=== PATIENT | male | born 1935 | race Caucasian/White ===

== ENCOUNTER 2017-09-03 08:35 | Observation (INO) | payer MEDICARE, SELFPAY ==
[2017-09-03] VITALS (9 sets, daily range): BP systolic 119–139; BP diastolic 60–85; PULSE 60–78; RESP 11–20; TEMP 36.2–36.8; O2SAT 96–98; BMI 23.8; BMI 23.9
--- NOTE | 2017-09-03 08:46 | CT_ITS ---
STUDY: CT BRAIN WITHOUT CONTRAST REASON FOR EXAM: Male, 82 years old. Dizziness RADIATION DOSAGE (If Supplied By Facility): CTDIvol = ( 44.99 ) mGy, DLP = ( 745.49 ) mGycm TECHNIQUE: Transaxial CT imaging of the brain was performed without administration of intravenous contrast material. Individualized dose optimization techniques were used for this CT. COMPARISON: None. FINDINGS: The soft tissues are unremarkable. The osseous structures are unremarkable. Normal size ventricles and extra-axial spaces for the patient's age. There are scattered small areas of decreased attenuation within the white matter tracts of the supratentorial brain, likely microvascular changes. 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 No abnormalities are seen in the brainstem. The cerebellum is unremarkable. There is no intracranial hemorrhage. There are no findings of acute ischemia. There is minimal mucosal thickening in the right maxillary sinus and both frontal sinuses. CT/Brain/Head without Contrast IMPRESSION: No acute intracranial abnormalities. Electronically Signed: Shellie Travis MD at 9:27 EST Tel Direct: [phone], Service support ,
--- NOTE | 2017-09-03 08:46 | RAD_ITS ---
STUDY: X-RAY CHEST REASON FOR EXAM: Male, 82 years old. Dizziness TECHNIQUE: A single frontal view of the chest was obtained. COMPARISON: None. FINDINGS: The lungs are underaerated. There are minimal increased markings in the lung bases. There are no focal airspace opacities. There is no demonstrated pleural abnormality. The cardiac silhouette is normal in size allowing for low volume inspiration. The mediastinum and hilar regions are unremarkable. Normal visualized pulmonary arteries. There is atherosclerotic calcification of the thoracic aorta. There are diffuse degenerative changes of the visualized spine. There are degenerative changes in both shoulders. There is no demonstrated abnormality of the visualized upper abdomen. RAD/Chest 1 View (Portable) IMPRESSION: No acute cardiopulmonary abnormalities. There is minimal bibasilar atelectasis due to low volume inspiration. Electronically Signed: Shellie Travis MD at 9:20 EST Tel Direct: [phone], Service support ,
[2017-09-03] MEDS: Ondansetron 4 MG/2 ML Vial IV (08:52)
[2017-09-03 08:58] LABS: Absolute Lymphocyte Count 3.02 X10^3/ul (0.83-4.51); Absolute Neutrophil Count 3.8 X10^3/uL (2.0-7.7); Basophil# 0.02 X10^3/uL; Basophil% 0.3 % (0-1); Eosinophils% 1.3 % (0-5); Hematocrit 45.3 % (40-54); Hemoglobin 15.7 g/dl (13.0-16.5); Lymphocyte # 3.02 X10^3/ul (4.0); Lymphocyte % 40.1 % (19-41); Mean Corp Hgb Conc 34.7 g/gl (32-36); Mean Corpuscular Hgb 30.7 pg (27.0-32.0); Mean Corpuscular Volume 88.5 fL (80-94); Mean Platelet Vol. 10.5 fl (6.2-12.0); Monocyte# 0.57 X10^3/uL; Monocyte% 7.6 % (0-10); Neutrophil # 3.81 X10^3/uL (2.7-7.7); Neutrophil % 50.6 % (47-70); POSITIVE COUNT NO; POSITIVE DIFFERENTIAL NO; POSITIVE MORPHOLOGY NO; Platelet Count 189 K/mm3 (150-450); RBC Distribution Width CV 12.8 % (11.6-14.6); RBC Distribution Width SD 41.5 fl (35.1-43.9); Red Blood Count 5.12 M/mm3 (4.6-6.2); White Blood Count 7.5 K/mm3 (4.4-11.0)
[2017-09-03 09:14] LABS: AST(SGOT) 46 U/L (15-37); Alanine Aminotransfer ALT/SGPT 63 U/L (12-78); Albumin, Serum 3.5 g/dL (3.4-5.0); Alkaline Phosphatase 77 U/L (45-117); Anion Gap 12 (5-15); BUN 11 mg/dL (7-18); BUN/Creat Ratio 8.7 RATIO (10-20); Bilirubin, Direct 0.22 mg/dL (0.00-0.30); Calcium,Total 8.8 mg/dL (8.5-10.1); Chloride 104 mmol/L (98-107); Creatinine, Serum 1.27 mg/dL (0.70-1.30); EST Glomerular Filtration Rate 58 mL/min (>60); Est Glom Filt Rate - Afr Amer 70 mL/min (>60); Estimated Creatinine Clearance 41.86 ml/min; Globulin 4.2 g/dL (2.2-4.2); Glucose 183 mg/dL (70-110); Lipase 130 U/L (73-393); Potassium 4.3 mmol/L (3.5-5.1); Protein, Total 7.7 g/dL (6.4-8.2); Sodium Level 141 mmol/L (136-145)
--- NOTE | 2017-09-03 09:41 | ED.VISSUMM ---
- ER Visit Summary Date of Service: 09/03/17 Chief Complaint: [] Dizzy spinning sensation started 11 PM yesterday History of Present Illness: The patient is a 82 M [] denies any past history reports yesterday 11 PM he began feeling a sense that everything was spinning, no headache #6 paresthesias no change in vision no chest pain abdominal pain review of systems to all areas were entirely negative. His symptoms persisted today he developed some dry heaves and he came in for evaluation Physical Examination: [] Is a lazy left eye that at baseline points to this 5 o'clock position that is not new or different his vision both eyes are normal for him his head is unremarkable neck is supple lungs are clear heart tones are normal abdomen soft nontender upper lower extremities unremarkable his cranial nerve exam is unremarkable I cannot reproduce his dizziness with extraocular muscle movement when he turns his head left or right he subjectively feels more dizzy but there is no nystagmus he has no obvious cerebellar abnormalities nose normal strength and normal sensation speech and cranial nerves are intact, NIH is 0 Test Results: [] Emergency Department Course and Treatment: [] Labs CT head These are generally unremarkable. The patient continues to complain of being dizzy we walked him he seemed to walk with good stability but the family complained that they did not feel he was comfortable or safe for discharge home because he was still dizzy his neurologic exam is unchanged again is complaining of a spinning sensation his NIH remains 0 given all the above we talked the hospitalist will arrange for admission Treatment Plan: [] Disposition: [] Admit stable Impression: [] Intractable dizziness with vertigo This note was generated with [employer] dictation software. It may contain incorrect words, spelling, and punctuation that were not noted in review of the chart prior to signing ED Disposition - Plan for ED Patient: Chief Complaint: Dizziness Referrals: Clayton Márquez MD [Primary Care Provider] -
--- NOTE | 2017-09-03 10:13 | EKG12_ITS ---
Test Reason : DIZZINESS Blood Pressure : / mmHG Vent. Rate : 061 BPM Atrial Rate : 061 BPM P-R Int : 164 ms QRS Dur : 078 ms QT Int : 422 ms P-R-T Axes : 049 020 024 degrees QTc Int : 424 ms Normal sinus rhythm Normal ECG Confirmed by JEANINE MENDOZA, DERIC ([id number]), editor trade journal CRISTAL LANGSTON ([id number]) on 09/05/2017 10:40:49 AM Referred By: JUNE Confirmed By:DERIC SOLORZANO MD
[2017-09-03] MEDS: Meclizine 12.5 MG Tablet 25 MG PO (10:24)
[2017-09-03] MEDS: LORazepam 2 MG/ML Syringe 0.5 MG IV (10:24)
[2017-09-03 12:47] LABS: Bacteria 0 SEEN /hpf (None Seen); Mucous, Urine 0 SEEN /hpf (<or=2+); Red Blood Cells-Urine 0 SEEN /hpf (0-5); Squamous Epithelial Cells - UA 0 SEEN /hpf (0-5)
[2017-09-03 12:49] LABS: Color, Urine Yellow (Yellow); Glucose, Dipstick Normal (Normal); Ketone-Dipstick Negative (Negative); Leukocyte Esterase-Dipstick 25 /ul (Negative); Nitrite-Dipstick Negative (Negative); Occult Blood-Urine Negative /ul (Negative); Protein-Dipstick Negative (Negative); Urine Bilirubin Dipstick Negative (Negative); Urine Clarity Clear (Clear); Urine Urobilinogen Normal (Normal)
[2017-09-03 12:59] LABS: White Blood Cells 0-5 SEEN /hpf (0-5)
--- NOTE | 2017-09-03 14:05 | HP.PCM_ITS ---
Problem List (1) Positional vertigo Status: Acute History of Present Illness Date of Admission: 09/03/17 Chief Complaint: dizziness The patient is a 82 year old M who presented to the ER with a chief complaint of dizziness. This began last night as he was climbing into bed. He went from standing to the bed and became suddenly dizzy with a sensation of the room spinning. He does not have a hx of vertigo or stroke. He then woke up this morning with no vertigo, but after he sat up in bed the sensation returned. He tried to get up and walk and was falling into the rose as his balance was very poor. He did not fall to the ground or lose consciousness. He came to the ER and was given ativan and meclizine which did improve his symptoms although he still has some residual dizziness lying in bed. He states if he turns his head sharply to either direction he can trigger the dizziness. He denies double vision, headache, focal weakness, slurred speech, foot drag, CP, palp, or SOB. He has no medical hx, he takes fish oil and vitamin D. He has left amblyopia that is unchanged since an age 14 injury. [] Past Medical History Allergies No Known Allergies Allergy (Verified 09/03/17 08:41) Home Medications: Ambulatory Orders Medication Instructions Recorded NK [NK] 07/19/17 Surgical History: - - neck lumps removed - non cancerous Psychiatric History: No pertinent psych hx Lives: Spouse/ Significant Other Smoking Status: Never smoker Tobacco Use: Non-smoker Alcohol: None Drugs: None - *Family History Paternal History Items: Diabetes Sibling History Items: Diabetes, Heart Disease Review of Systems Constitutional: Denies: Chills, Fever, Malaise, Weakness, Weight Change, Fatigue Eyes: Denies: Blurred vision, Double vision, Vision Change HEENT: Denies: Difficulty Hearing, Difficulty Swallowing, Hard of Hearing, Head Aches, Hearing Changes, Sinus Congestion, Sinus Drainage, Visual Changes Cardiovascular: Denies: Chest Pain, Palpitations Respiratory: Denies: Cough, Shortness of breath at rest, Sputum production Gastrointestinal: Denies: Abdominal Pain, Nausea, Vomiting Genitourinary: Denies: Dysuria Musculoskeletal: Denies: Joint Pain, Joint Tenderness Skin: Denies: Rash, Wounds Neurological: Reports: Balance problems, Incoordination, - - left amblyopia chronic since age 14 trauma, - - vertigo. Denies: Blurred vision, Double vision , Change in Speech, Slurred speech, Confusion, Focal weakness, Headaches, Numbness, Tingling Psychiatric: Denies: Anxiety, Depression, Homicidal Ideations, Suicidal Ideations Hematologic/ Lymphatic: Denies: Easy Bruising, Easy Bleeding VTE Information - Inpt Only VTE Present on Admission: No VTE Mechan Device Prophylaxis: SCD's VTE Pharm Prophylaxis ordered?: No Reason prophylaxis not ordered:: Procedure Not Indicated Patient Problems: Active and Suspected Problems Positional vertigo (Acute) - Physical Exam General: Alert, Oriented x3, Cooperative HEENT: Atraumatic, PERRLA, EOMI, Normocephalic, - - + fine nystagmus left and right. Negative lorenzo hallpike maneuver. left amblyopia. does track well. Neck: Supple, No JVD, Negative Carotid Bruits Lungs: Clear to auscultation, Normal air movement Cardiovascular: Regular rate, No murmurs Abdomen: Bowel Sounds Present, Soft, Non Tender Extremities: No edema, Capillary Refill Less than 3 Seconds Skin: No rashes, No breakdown Musculoskeletal: No Tenderness to Palpation of Joints or Extremities Neurological: Cranial nerves II-XII grossly intact Psych/Mental Status: Normal Affect, Appropriate, Alert and oriented to time, place, person, mood and affect Vital Signs Temp Pulse Resp BP Pulse Ox 97.2 F L 68 17 135/78 H 96 09/03/17 08:35 09/03/17 13:41 09/03/17 13:41 09/03/17 13:41 09/03/17 12:54 Oxygen Delivery Method Room Air Weight: 67.132 kg Body Mass Index (BMI) 23.8 Laboratory Tests Past 24 Hrs 09/03/17 09/03/17 09/03/17 08:50 08:50 12:40 WBC 7.5 RBC 5.12 Hgb 15.7 Hct 45.3 MCV 88.5 MCH 30.7 MCHC 34.7 RDW 12.8 RDW Differential 41.5 Plt Count 189 MPV 10.5 Immature Gran % (Auto) 0.100 Neut % (Auto) 50.6 Lymph % (Auto) 40.1 Miller % (Auto) 7.6 Eos % (Auto) 1.3 Baso % (Auto) 0.3 Absolute Neuts (auto) 3.8 Absolute Lymphs (auto) 3.02 Total Counted Not Reportable Sodium 141 Potassium 4.3 Chloride 104 Carbon Dioxide 25.0 Anion Gap 12 BUN 11 Creatinine 1.27 Estim Creat Clear Calc 41.86 Est GFR (MDRD) Af Amer 70 Est GFR (MDRD) Non-Af 58 L BUN/Creatinine Ratio 8.7 L Glucose 183 H Calcium 8.8 Total Bilirubin 1.00 Direct Bilirubin 0.22 AST 46 H ALT 63 Alkaline Phosphatase 77 Troponin I < 0.02 Total Protein 7.7 Albumin 3.5 Globulin 4.2 Lipase 130 Urine Color Yellow Urine Clarity Clear Urine pH 7.0 Ur Specific [place] 1.010 Urine Protein Negative Urine Glucose (UA) Normal Urine Ketones Negative Urine Occult Blood Negative Urine Nitrite Negative Urine Bilirubin Negative Urine Urobilinogen Normal Ur Leukocyte Esterase 25 H Urine RBC 0 SEEN Urine WBC 0-5 SEEN Ur Squamous Epith Cells 0 SEEN Urine Bacteria 0 SEEN Urine Mucus 0 SEEN Assessment/Plan Active and Suspected Problems Positional vertigo (Acute) 1. BPPV - new onset of symptoms last night, vertigo severe enough to be causing ataxic gait. CT brain negative. Symptoms improved with Meclizine and valium. Will continue. Obtain MRI/MRA of the brain to rule out other underlying process. Labs and vitals unremarkable. Pt can self stimulate the symptoms with sudden turns left or right and has some nystagmus on exam. I was unable to elicit or worsen the symptoms on exam. He denies other symptoms concerning for a stroke such as slurred speech, double vision, focal weakness, facial droop, headache, or numbness or tingling 2. Left Amblyopia - chronic 3. Hyperglycemia - check A1C - no prior dx. + family hx - mulitple family members with DM. SSI. DVT ppx: SCDs DC planning: PTOT. Will likely need vestibular therapy as o/p. Pt seen by Franki Oconnor PA-C under the supervision of Dr. Garibay
[2017-09-03] MEDS: diazePAM 2 MG Tablet PO ×3 (16:02→21:54)
[2017-09-03 16:10] LABS: Bedside Glucose 174 mg/dL (70-110)
[2017-09-03 16:28] LABS: Hemoglobin A1c 6.4 % (4.2-6.3)
[2017-09-04 00:33] VITALS: PULSE 80
[2017-09-04 02:44] VITALS: BP 136/64; PULSE 67; RESP 16; TEMP 37; O2SAT 93
[2017-09-04 04:19] VITALS: PULSE 63
--- NOTE | 2017-09-04 07:29 | MRI_ITS ---
STUDY: MRI BRAIN WITHOUT CONTRAST REASON FOR EXAM: Male, 82 years old. Vertigo. TECHNIQUE: Standardized multiplanar fat and water weighted pulse sequences were obtained. COMPARISON: CT of the head dated September 03, 2017. FINDINGS: There is mild cerebral atrophy with widening of the extra-axial spaces and ventricular dilatation. There are a limited number of small white matter hyperintensities, distributed throughout the deep white matter tracts of the cerebral hemispheres, consistent with mild chronic white matter ischemic changes. There is no evidence for recent intracranial ischemia or other cause of cytotoxic edema on diffusion weighted imaging (DWI). Normal T2* images of the brain without demonstrated susceptibility artifact. There is no demonstrated hemosiderin stain. There is a large area of apparent encephalomalacia in the left basal ganglia. This may represent sequela of old infarct. There are prominent Virchow-Herrera spaces in the basal ganglia. Normal thalami. There is no extra-axial fluid accumulation. Normal flow voids within the major intracranial circulation suggesting patency by spin echo criteria. Normal sella turcica, pituitary gland, infundibular stalk, optic chiasm and hypothalamus. Normal tectal plate and pineal gland. Normal midbrain, long and medulla. Normal cerebellum. Normal basal cisterns. Normal bilateral temporal bones. Normal bilateral internal auditory canals. No demonstrated orbital abnormality, within the constraints of a routine brain study. There is mucoperiosteal inflammatory disease of the paranasal sinuses consistent with mild chronic sinusitis. Normal calvarium and skull base. Normal visualized soft tissue structures. There are mild degenerative changes of the imaged cervical spine. MRI/Brain without Contrast IMPRESSION: 1. Involutional changes of the brain, as described above. 2. No MR evidence for acute infarct. Electronically Signed: Vonda Treviño MD at 10:49 EST , Service support ,
--- NOTE | 2017-09-04 07:29 | MRI_ITS ---
STUDY: MRA OF THE HEAD WITHOUT CONTRAST REASON FOR EXAM: Male, 82 years old. Vertigo. TECHNIQUE: 3-D umdt-rh-gacwjq (TOF) imaging was performed with MIPs. The study was performed unenhanced. Several images are limited by patient motion. COMPARISON: MRI of the brain dated September 04, 2017. FINDINGS: Normal bilateral petrous carotid arteries. Normal right cavernous carotid artery with a normal supraclinoid bifurcation. Normal left cavernous carotid artery with a normal supraclinoid bifurcation. Normal right A1 segments of the anterior cerebral artery. Normal left A1 segments of the anterior cerebral artery. There is non-visualization of the anterior communicating artery (ACOM). Normal bilateral A2 segments of the anterior cerebral arteries. There is irregularity of the right M1 and M2 branches with minimal luminal narrowing, suggesting atherosclerotic plaque formation, without an occlusion. There is irregularity of the left M1 and M2 branches with minimal luminal narrowing, suggesting atherosclerotic plaque formation, without an occlusion. There is non-visualization of the right posterior communicating artery (PCOM). There is non-visualization of the left posterior communicating artery (PCOM). Normal bilateral vertebral arteries. Normal basilar artery with a normal basilar bifurcation. The visualized bilateral superior cerebellar (SCA) arteries are normal. Normal bilateral P1, P2 and visualized P3 segments of the posterior cerebral arteries. There is no demonstrated aneurysm of the [place]. There is no major vessel occlusion or hemodynamically significant stenosis. There are mild involutional changes of the brain. MRI/MRA Head ONLY without Contrast IMPRESSION: 1. Technically limited MRA due to patient motion. 2. No MRA evidence for hemodynamically significant stenosis. Electronically Signed: Vonda Treviño MD at 10:54 EST , Service support ,
--- NOTE | 2017-09-04 07:34 | MRI_ITS ---
STUDY: MRA NECK WITH AND WITHOUT CONTRAST REASON FOR EXAM: Male, 82 years old. Vertigo. TECHNIQUE: 3-D nwnr-mx-umkzeg (TOF) imaging was performed in an 1.5 T MRI scanner. 7 ml of Gadavist was administered for the contrast enhanced images. COMPARISON: None. FINDINGS: RIGHT CAROTID ARTERIES: Normal right common carotid artery (CCA). There is mild atherosclerotic plaque formation with minimal narrowing of the right carotid bulb. There is mild atherosclerotic plaque formation of the origin of the right internal carotid artery with less than 50% cross sectional diameter stenosis. Normal visualized cervical portion of the right internal carotid artery. Normal origin of the right external carotid artery (ECA). LEFT CAROTID ARTERIES: Normal left common carotid artery (CCA). There is mild atherosclerotic plaque formation with minimal narrowing of the left carotid bulb. There is mild atherosclerotic plaque formation of the origin of the left internal carotid artery with less than 50% cross sectional diameter stenosis. Normal visualized cervical portion of the left internal carotid artery. Normal origin of the left external carotid artery (ECA). VERTEBRAL ARTERIES: Normal antegrade flow within the bilateral vertebral artery without a hemodynamically significant stenosis. 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 Electronically Signed: Vonda Treviño MD at 10:34 EST , Service support ,
[2017-09-04 07:58] VITALS: PULSE 73
--- NOTE | 2017-09-04 08:34 | PCM.PN.HOSP ---
Patient Problems: Active and Suspected Problems Positional vertigo (Acute) Subjective: Patient with no acute events overnight per self and per nursing report. Patient notes improvement with vertigo with no further marked room spinning sensation. Morning following MRIs which are pending he is upright in bed talking with his family, moving his neck side to side, eating in no acute distress. States he has been up to the restroom did not have any difficulty at that time but repeat assessment following food intake is pending. Patient denies fevers, chills, nausea, emesis, abdominal pain, chest pain or dyspnea. Objective: Physical Examination: General: awake, alert, oriented x 3 and cooperative, seated upright in bed in no apparent distress. Skin: normal color, turgor, no icterus, cyanosis. HEENT: AT/NC, EOMI, PERRLA, MMM, chronic left amblyopia. Lungs: CTA bilaterally, moderate effort, mild decrease BL bases, no rales, ronchi or wheezing. Heart: Regular rate and rhythm; no gallop, rub audible. Abdomen: soft, NTTP, ND, normal BS. Extremities: no cyanosis, clubbing, or edema. Neurological: patient awake, alert, oriented x 3; cognitive function intact; pupils equally reactive to light and accomodation; cranial nerves II-XII grossly normal, moving all 4 extremities, no focal deficits, strength improved, no vertigo sensation currently and none with quick head movement. Psychiatric: affect appears normal, no acute evidence of depressive or anxiety feelings. Vitals/I&O's: Vital Signs Temp Pulse Resp BP Pulse Ox 98.6 F 63 16 136/64 H 93 09/04/17 02:44 09/04/17 04:19 09/04/17 02:44 09/04/17 02:44 09/04/17 02:44 Oxygen Delivery Method Room Air Weight: 147 lb 14.883 oz Body Mass Index (BMI) 23.8 Intake and Output for Last 24 Hours 09/02/17 09/03/17 09/04/17 23:59 23:59 23:59 Intake Total 300 / 300 325 / 325 Output Total 0 / 0 Balance 300 / 300 325 / 325 Laboratory Results 09/03/17 16:01: POC Glucose 174 H Current Medications Acetaminophen (Tylenol) 650 mg PO Q6H PRN PRN PRN Reason: Mild Pain (1-3)/Temp > 100.7 F Diazepam (Valium) 2 mg PO 4X/DAY [facility] Last Admin: 09/03/17 21:54 Dose: 2 mg Heparin Sodium (Porcine) (Heparin Na) 5,000 unit SC Q8 [facility] Last Admin: 09/04/17 05:27 Dose: 5,000 units Ondansetron HCl (Zofran) 4 mg IV Q8H PRN PRN PRN Reason: NAUSEA Sodium Chloride () 5 - 30 ml IV UD PRN PRN Reason: SALINE FLUSH Assessment/Plan Active and Suspected Problems Positional vertigo (Acute) The patient is an 82 y/o M w/ PMHx no marked PMHx but no regular medical evaluation who presents to the [facility] ED on 09/03/17 w/ onset of dizziness described as room spinning with difficulty ambulating with noted onset w/ quick turn of his head. (1) Suspected Vertigo secondary to BPPV: CT head without acute findings. Maintained on MS, given severity of presentation, continued on valium regimen w/ planned oral meclizine upon discharge, pending MRI Brain, MRA Head and Neck and if unremarkable would plan discharge to home pending therapy assessment, if needed will set-up vestibular therapy outpatient. Maintain on asa, BP normal range, not on statin, will obtain FLP if notable findings on MRI, fall precautions. (2) Hyperglycemia secondary to Pre-Diabetes mellitus type II: Admission glucose 183, HgBA1c 6.4%, nutrition consulted for education, will need repeat HgBA1c with PCP and if > or = 6.5% at recheck consider addition metformin. (3) Chronic Left Eye Amblyopia: Unclear specific type, chronic, following as needed outpatient. (4) DVT Prophylaxis: SCDs, lovenox. Code Visit OBSV E&M: 49029 Subsequent observation care L2
[2017-09-04] MEDS: diazePAM 2 MG Tablet PO (08:44)
--- NOTE | 2017-09-04 08:45 | PN_ITS ---
Patient Problems: Active and Suspected Problems Positional vertigo (Acute) Subjective: Patient with no acute events overnight per self and per nursing report. Patient notes improvement with vertigo with no further marked room spinning sensation. Morning following MRIs which are pending he is upright in bed talking with his family, moving his neck side to side, eating in no acute distress. States he has been up to the restroom did not have any difficulty at that time but repeat assessment following food intake is pending. Patient denies fevers, chills, nausea, emesis, abdominal pain, chest pain or dyspnea. Objective: Physical Examination: General: awake, alert, oriented x 3 and cooperative, seated upright in bed in no apparent distress. Skin: normal color, turgor, no icterus, cyanosis. HEENT: AT/NC, EOMI, PERRLA, MMM, chronic left amblyopia. Lungs: CTA bilaterally, moderate effort, mild decrease BL bases, no rales, ronchi or wheezing. Heart: Regular rate and rhythm; no gallop, rub audible. Abdomen: soft, NTTP, ND, normal BS. Extremities: no cyanosis, clubbing, or edema. Neurological: patient awake, alert, oriented x 3; cognitive function intact; pupils equally reactive to light and accomodation; cranial nerves II-XII grossly normal, moving all 4 extremities, no focal deficits, strength improved, no vertigo sensation currently and none with quick head movement. Psychiatric: affect appears normal, no acute evidence of depressive or anxiety feelings. Vitals/I&O's: Vital Signs Temp Pulse Resp BP Pulse Ox 98.6 F 63 16 136/64 H 93 09/04/17 02:44 09/04/17 04:19 09/04/17 02:44 09/04/17 02:44 09/04/17 02:44 Oxygen Delivery Method Room Air Weight: 147 lb 14.883 oz Body Mass Index (BMI) 23.8 Intake and Output for Last 24 Hours 09/02/17 09/03/17 09/04/17 23:59 23:59 23:59 Intake Total 300 / 300 325 / 325 Output Total 0 / 0 Balance 300 / 300 325 / 325 Laboratory Results 09/03/17 16:01: POC Glucose 174 H Current Medications Acetaminophen (Tylenol) 650 mg PO Q6H PRN PRN PRN Reason: Mild Pain (1-3)/Temp > 100.7 F Diazepam (Valium) 2 mg PO 4X/DAY [facility] Last Admin: 09/03/17 21:54 Dose: 2 mg Heparin Sodium (Porcine) (Heparin Na) 5,000 unit SC Q8 [facility] Last Admin: 09/04/17 05:27 Dose: 5,000 units Ondansetron HCl (Zofran) 4 mg IV Q8H PRN PRN PRN Reason: NAUSEA Sodium Chloride () 5 - 30 ml IV UD PRN PRN Reason: SALINE FLUSH Assessment/Plan Active and Suspected Problems Positional vertigo (Acute) The patient is an 82 y/o M w/ PMHx no marked PMHx but no regular medical evaluation who presents to the [facility] ED on 09/03/17 w/ onset of dizziness described as room spinning with difficulty ambulating with noted onset w/ quick turn of his head. (1) Suspected Vertigo secondary to BPPV: CT head without acute findings. Maintained on MS, given severity of presentation, continued on valium regimen w / planned oral meclizine upon discharge, pending MRI Brain, MRA Head and Neck and if unremarkable would plan discharge to home pending therapy assessment, if needed will set-up vestibular therapy outpatient. Maintain on asa, BP normal range, not on statin, will obtain FLP if notable findings on MRI, fall precautions. (2) Hyperglycemia secondary to Pre-Diabetes mellitus type II: Admission glucose 183, HgBA1c 6.4%, nutrition consulted for education, will need repeat HgBA1c with PCP and if > or = 6.5% at recheck consider addition metformin. (3) Chronic Left Eye Amblyopia: Unclear specific type, chronic, following as needed outpatient. (4) DVT Prophylaxis: SCDs, lovenox. Code Visit OBSV E&M: 36494 Subsequent observation care L2
[2017-09-04 08:46] VITALS: BP 152/81; PULSE 80; RESP 18; TEMP 36.6; O2SAT 98
--- NOTE | 2017-09-04 08:56 | NURSING ---
Addendum entered by Erna Montana 09/04/17 10:11: pt returned at this time- Dr. Rodriguez at this time. Original Note: patient off unit at this time-per radiology transport
--- NOTE | 2017-09-04 10:22 | NURSING ---
This RN called MRI and spoke with Marimar. Notified that Dr. Rodriguez requests results of MRI and MRA- head and neck to be STAT. Understanding verbalized- states she will adjust orders.
--- NOTE | 2017-09-04 10:26 | PCM.DC ---
- Discharge Diagnoses Current Active Problems: Current Active and Chronic Problems Positional vertigo (Acute) You will use the following diet at home:: No restrictions Your food should be the consistency of: Regular Your liquids should be the consistency of: Regular/Thin Discharge Activity: - - Avoid driving until vertigo completely resolved and not requiring meclizine. May resume sexual activity in: No Restrictions Weight Bearing Status: Weight bearing as tolerated Call your doctor if you observe: Fever of 101 or Higher, Inability to urinate, Inability to have a bowel movement, Shortness of breath, Dizziness, Fainting spells, Chest pain, Uncontrolled pain, - - Recurrent or worsened vertigo. Instructions: Understanding Dizziness, Balance Problems, and Fainting, Possible Causes of Dizziness or Fainting, Managing Dizziness (Vertigo) with Medications Allergies/Adverse Reactions: Allergies No Known Allergies Allergy (Verified 09/03/17 15:08) Medications to take at Discharge Aspirin [Aspirin, Baby] 81 mg PO DAILY@0800 #30 tab.chew 09/04/17 Meclizine HCl [Antivert] 25 mg PO TID PRN PRN #30 tab 09/04/17 Ondansetron HCl [Zofran] 8 mg PO Q8H PRN PRN #20 tab 09/04/17 The following prescriptions were given: Ondansetron HCl [Zofran] 8 mg PO Q8H PRN PRN #20 tab PRN Reason: nausea, emesis Aspirin [Aspirin, Baby] 81 mg PO DAILY@0800 #30 tab.chew Meclizine HCl [Antivert] 25 mg PO TID PRN PRN #30 tab PRN Reason: Vertigo (spinning sensation) Primary Care Physician: Clayton Márquez MD [Primary Care Provider] - Please follow up with your Primary Care Physician in: Follow-up within 3-5 days to review admission. Proposed Discharge Date: 09/04/17
--- NOTE | 2017-09-04 11:05 | PCM.DC.SUM ---
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 Operations: None Procedures: EKG Summary of Care Provided: The patient is an 82 y/o M w/ PMHx no marked PMHx but no regular medical evaluation who presents to the [facility] ED on 09/03/17 w/ onset of dizziness described as room spinning with difficulty ambulating with noted onset w/ quick turn of his head. Suspected Vertigo secondary to BPPV w/ CT head without acute findings. Maintained on MS, given severity of presentation, continued on valium regimen w/ oral meclizine upon discharge, unremarkable MRI Brain, MRA Head and Neck, vestibular therapy outpatient as needed. Maintain on asa upon discharge, BP normal range, not on statin w/ recommendation outpatient continued evaluation and follow-up. During the admission, patient w/ noted hyperglycemia secondary to Pre-Diabetes mellitus type II w/ admission glucose 183, HgBA1c 6.4%, nutrition consulted for education, will need repeat HgBA1c with PCP and if > or = 6.5% at recheck consider addition metformin. Given MRIs negative and patient clinically improved, patient discharged to home in stable condition. Discharge Diet: 1800 Calorie Control Diet Discharge Activity: - - Avoid driving until vertigo completely resolved and not requiring meclizine. May resume sexual activity in: No Restrictions Weight Bearing Status: Weight bearing as tolerated Call your doctor if you observe: Fever of 101 or Higher, Inability to urinate, Inability to have a bowel movement, Shortness of breath, Dizziness, Fainting spells, Chest pain, Uncontrolled pain, - - Recurrent or worsened vertigo. Home Medications: Medications to take at Discharge Aspirin [Aspirin, Baby] 81 mg PO DAILY@0800 #30 tab.chew 09/04/17 Meclizine HCl [Antivert] 25 mg PO TID PRN PRN #30 tab 09/04/17 Ondansetron HCl [Zofran] 8 mg PO Q8H PRN PRN #20 tab 09/04/17 Following Prescrptions Were Given to Patient: Ondansetron HCl [Zofran] 8 mg PO Q8H PRN PRN #20 tab PRN Reason: nausea, emesis Aspirin [Aspirin, Baby] 81 mg PO DAILY@0800 #30 tab.chew Meclizine HCl [Antivert] 25 mg PO TID PRN PRN #30 tab PRN Reason: Vertigo (spinning sensation) Primary Care Physician: Clayton Márquez MD [Primary Care Provider] - Please follow up with your Primary Care Physician in: Follow-up within 3-5 days to review admission. Patient Instructions: Understanding Dizziness, Balance Problems, and Fainting, Possible Causes of Dizziness or Fainting, Managing Dizziness (Vertigo) with Medications Disposition: Home Minutes spent on discharge:: 35 Patient Condition:: Fair Meaningful Use Info Meaningful Use Diagnoses (Choose all that apply): None applicable Code Visit OBSV E&M: 20107 Observation care discharge
--- NOTE | 2017-09-04 11:12 | DS.PCM_ITS ---
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 Operations: None Procedures: EKG Summary of Care Provided: The patient is an 82 y/o M w/ PMHx no marked PMHx but no regular medical evaluation who presents to the [facility] ED on 09/03/17 w/ onset of dizziness described as room spinning with difficulty ambulating with noted onset w/ quick turn of his head. Suspected Vertigo secondary to BPPV w/ CT head without acute findings. Maintained on MS, given severity of presentation, continued on valium regimen w/ oral meclizine upon discharge, unremarkable MRI Brain, MRA Head and Neck, vestibular therapy outpatient as needed. Maintain on asa upon discharge, BP normal range, not on statin w/ recommendation outpatient continued evaluation and follow-up. During the admission, patient w/ noted hyperglycemia secondary to Pre-Diabetes mellitus type II w/ admission glucose 183, HgBA1c 6.4% , nutrition consulted for education, will need repeat HgBA1c with PCP and if > or = 6.5% at recheck consider addition metformin. Given MRIs negative and patient clinically improved, patient discharged to home in stable condition. Discharge Diet: 1800 Calorie Control Diet Discharge Activity: - - Avoid driving until vertigo completely resolved and not requiring meclizine. May resume sexual activity in: No Restrictions Weight Bearing Status: Weight bearing as tolerated Call your doctor if you observe: Fever of 101 or Higher, Inability to urinate, Inability to have a bowel movement, Shortness of breath, Dizziness, Fainting spells, Chest pain, Uncontrolled pain, - - Recurrent or worsened vertigo. Home Medications: Medications to take at Discharge Aspirin [Aspirin, Baby] 81 mg PO DAILY@0800 #30 tab.chew 09/04/17 Meclizine HCl [Antivert] 25 mg PO TID PRN PRN #30 tab 09/04/17 Ondansetron HCl [Zofran] 8 mg PO Q8H PRN PRN #20 tab 09/04/17 Following Prescrptions Were Given to Patient: Ondansetron HCl [Zofran] 8 mg PO Q8H PRN PRN #20 tab PRN Reason: nausea, emesis Aspirin [Aspirin, Baby] 81 mg PO DAILY@0800 #30 tab.chew Meclizine HCl [Antivert] 25 mg PO TID PRN PRN #30 tab PRN Reason: Vertigo (spinning sensation) Primary Care Physician: Clayton Márquez MD [Primary Care Provider] - Please follow up with your Primary Care Physician in: Follow-up within 3-5 days to review admission. Patient Instructions: Understanding Dizziness, Balance Problems, and Fainting, Possible Causes of Dizziness or Fainting, Managing Dizziness (Vertigo) with Medications Disposition: Home Minutes spent on discharge:: 35 Patient Condition:: Fair Meaningful Use Info Meaningful Use Diagnoses (Choose all that apply): None applicable Code Visit OBSV E&M: 12179 Observation care discharge
[2017-09-04] MEDS: Aspirin 81 MG TAB.CHEW PO (11:19)
[2017-09-04 14:31] VITALS: BP 141/83; PULSE 119; RESP 18; TEMP 37.1; O2SAT 98
== END 2017-09-04 14:33 | disposition home or self-care (01) ==
LOC: ED 09:28 → MS2 14:25
PROVIDERS: Admitting Provider Internal Medicine; Emergency Provider Emergency Medicine; Family Provider Family Medicine; PCP Family Medicine; Visit Provider Family Medicine
DX: H81.10 Benign paroxysmal vertigo, unspecified ear (principal); R73.03 Prediabetes; H53.002 Unspecified amblyopia, left eye; R73.9 Hyperglycemia, unspecified
CPT/HCPCS: 70450; 70544; 70549; 70551; 71045; 80048; 80076; 81001; 82962; 83036; 83690; 84484; 85025; 93005; 96372; 96374; 96375; 97162; 99218; 99282; A9585; J7030; J7040; A4216; G0378; J2405

== ENCOUNTER 2017-09-27 10:30 | Outpatient (RCR) | payer MEDICARE, SELFPAY ==
--- NOTE | 2017-09-19 13:38 | HP.PTEVAL_ITS ---
Patient's Visit Information HARINDER Damon MUÑOZ is a 82 year old M referred to Physical Therapy by Stacia DE PAZ with a diagnosis of Vertigo. Date of Evaluation: 09/19/17 Physical Therapist: Joby Villanueva DPT, OC - Visit Plan Frequency: 1x/Week Duration: 2-4 Weeks Plan: weekly as needed to monitor positional and treat with maneuvers and ex. - Subjective Subjective: ER doctor sent him from ER. September 04 to the ER because room was spinning on Monday and Monday. The dizzyness lasted 30 seconds both times. ER ran CTSCAN and x rays. Did not find anything. Gave nausea and dizzy meds and kept overnight. Still was getting dizzy spells with turnign or bending or looking up lasting 30 sec. hasn't had that in a while. Can still get dizzy if moves head to the left too fast. Last time was yesterday. Feels normal in beween sessions and balance is good. Sleeps well. Activitiy at home pretty normal when not spinning, has to be careful with movement. - Objective c/s AROM WNL and painfree. UE AROM slightly limited left shoulder but functional. Balance is good walks and trasnfers I. - R hallpike lorenzo. + L hallpike lorenzo. Up torsional nystagmus 7 seconds accompanied by spinning. Treated with Marlys Sharp and then retested negative. - Goals Goal 1:: Abolish dizzyness and feel 100% back to normal Goal Time Frame: 2-4 Weeks Goal 2:: Sleep and turn in bed without symptoms. Goal Time Frame: 2-4 Weeks - Rehabilitation Potential Physical Therapy Diagnosis: L posterior canal BPPV Rehabilitation Potential: Excellent - Anticipated Interventions Patient/Client Instruction: Educate patient on: Condition, Plan of Care Other: to decrease dizzyness. Therapeutic Exercise to Include: Balance training Comment: positional ex adn treatments For the Purpose of:: To increase tolerance to activity/condition/position, To improve safety Thank you for the opportunity to evaluate your patient. For Medicare and Medicare HMO plans, please review the plan of care and approve it. It will need to be FAXED BACK to us at [phone] for Medicare purposes. Please let me know if there are questions or concerns regarding this plan of care. Physician Signature: Date:
--- NOTE | 2017-11-27 08:39 | HP.PT.NRP ---
HP - Discharge Summary (1) - Patient Information HARINDER Damon MUÑOZ was seen in my office for initial evaluation on 09/19/17. The following Plan of Care was established for this patient: Initial Frequency: 1x/Week Initial Duration: 2-4 Weeks - Anticipated Interventions Patient/Client Instruction: Educate patient on: Condition, Plan of Care Other: to decrease dizzyness. Therapeutic Exercise to Include: Balance training For the Purpose of:: To increase tolerance to activity/condition/position, To improve safety This patient was last seen in our office 09/27/17. Pertinent comments regarding their Physical therapy will appear below: Pt seen 2 visits of positional treatments and was doing wella t last session. Was to f/u one week later for rechecka dn ensure back to all normal activities but neglected to schedule. at this point, it has been over two months adn I will discontinue due to nonattendance. At this point I will be discontinuing this patient from physical therapy. I would be happy to see this patient again in the future if found appropriate by the physician. Thank you! Joby Villanueva, DPT, OC
== END 2017-09-27 19:00 | disposition home or self-care (01) ==
LOC: PT 10:30
PROVIDERS: Family Provider Family Medicine; PCP Family Medicine; Visit Provider Family Medicine
DX: R42 Dizziness and giddiness (principal)
CPT/HCPCS: 97161; 97530

== ENCOUNTER → 2017-10-06 10:02 | Outpatient (CLI) | payer MEDICARE, SELFPAY ==
[2017-10-06 12:25] LABS: Absolute Lymphocyte Count 2.09 X10^3/ul (0.83-4.51); Absolute Neutrophil Count 3.2 X10^3/uL (2.0-7.7); Basophil# 0.03 X10^3/uL; Basophil% 0.5 % (0-1); Eosinophils% 4.7 % (0-5); Hemoglobin 14.3 g/dl (13.0-16.5); Lymphocyte # 2.09 X10^3/ul (4.0); Lymphocyte % 32.9 % (19-41); Mean Corp Hgb Conc 34.9 g/gl (32-36); Mean Corpuscular Hgb 30.7 pg (27.0-32.0); Mean Platelet Vol. 10.6 fl (6.2-12.0); Neutrophil # 3.22 X10^3/uL (2.7-7.7); Neutrophil % 50.7 % (47-70); Platelet Count 213 K/mm3 (150-450); RBC Distribution Width CV 13.2 % (11.6-14.6); RBC Distribution Width SD 41.3 fl (35.1-43.9); Red Blood Count 4.66 M/mm3 (4.6-6.2); White Blood Count 6.4 K/mm3 (4.4-11.0)
[2017-10-06 12:40] LABS: ALB/GLOB Ratio 0.8 RATIO (0.9-2.4); AST(SGOT) 34 U/L (15-37); Alanine Aminotransfer ALT/SGPT 38 U/L (16-61); Albumin, Serum 3.3 g/dL (3.2-5.0); Alkaline Phosphatase 74 U/L (45-117); Anion Gap 6 (5-15); BUN 12 mg/dL (7-18); BUN/Creat Ratio 9.3 RATIO (10-20); Calcium,Total 8.7 mg/dL (8.5-10.1); Chloride 106 mmol/L (98-107); Creatinine, Serum 1.29 mg/dL (0.70-1.30); EST Glomerular Filtration Rate 57 mL/min (>60); Est Glom Filt Rate - Afr Amer 69 mL/min (>60); Ferritin 403 ng/mL (26-388); Globulin 4.4 g/dL (2.2-4.2); Glucose 116 mg/dL (74-106); Iron 83 ug/dL (65-175); Iron Binding Capacity,Total 279 ug/dL (250-450); PERCENT IRON SATURATION 29.7 % (15.0-55.0); Potassium 4.1 mmol/L (3.5-5.1); Protein, Total 7.7 g/dL (6.4-8.2); Sodium Level 141 mmol/L (136-145)
[2017-10-06 12:55] LABS: POSITIVE COUNT NO; POSITIVE DIFFERENTIAL NO; POSITIVE MORPHOLOGY NO
== END ==
PROVIDERS: Family Provider Family Medicine; PCP Family Medicine; Visit Provider Family Medicine
DX: E83.19 Other disorders of iron metabolism (principal); R73.01 Impaired fasting glucose
CPT/HCPCS: 36415; 80053; 82728; 83540; 83550; 85025

== ENCOUNTER 2020-01-24 11:26 | Emergency (ER) | payer MEDICARE, OTHER, SELFPAY ==
[2020-01-24 11:27] VITALS: BP 169/101; PULSE 71; RESP 20; TEMP 36.3; O2SAT 98; BMI 24.2
[2020-01-24 11:36] VITALS: BMI 22.8
--- NOTE | 2020-01-24 11:48 | CT_ITS ---
STUDY: CT BRAIN WITHOUT CONTRAST REASON FOR EXAM: Male, 84 years old. FACIAL DROOP ON LEFT/PAIN BEHIND LT EAR/SLURRED SPEECH RADIATION DOSAGE (If Supplied By Facility): CTDIvol = ( 44.99 ) mGy, DLP = ( 745.49 ) mGycm TECHNIQUE: Transaxial CT imaging of the brain was performed without administration of intravenous contrast material. Individualized dose optimization techniques were used for this CT. COMPARISON: Comparison is made with prior examination dated March 03, 2018. FINDINGS: Normal soft tissue structures. Normal calvarium. There is mild cerebral atrophy with widening of the extra-axial spaces and ventricular dilatation. There are areas of decreased attenuation within the white matter tracts of the supratentorial brain, consistent with microvascular disease changes. Old lacunar infarct in the left basal ganglia. Normal brainstem. Normal cerebellum. There is no intracranial hemorrhage. There are no findings of an acute ischemic infarction. Normal visualized paranasal sinuses. CT/Brain/Head without Contrast IMPRESSION: Chronic involutional changes of the brain. Old lacunar infarct in the left basal ganglia. Electronically Signed: Chris Wells, at 12:18 EDT , Service support ,
[2020-01-24 11:58] LABS: Absolute Lymphocyte Count 2.13 X10^3/uL (0.83-4.51); Absolute Neutrophil Count 3.1 X10^3/uL (2.0-7.7); Basophil# 0.03 X10^3/uL; Basophil% 0.5 % (0-1); Eosinophil# 0.06 X10^3/uL; Hematocrit 45.1 % (40-54); Hemoglobin 15.4 g/dL (13.0-16.5); Lymphocyte # 2.13 X10^3/ul (4.0); Lymphocyte % 37.2 % (19-41); Mean Corp Hgb Conc 34.1 g/dL (32-36); Mean Corpuscular Hgb 30.6 pg (27.0-32.0); Mean Corpuscular Volume 89.5 fL (80-94); Mean Platelet Vol. 10.4 fl (6.2-12.0); Monocyte# 0.41 X10^3/uL; Monocyte% 7.2 % (0-10); NRBC Flagged by Analyzer 0 % (0-5); Neutrophil # 3.07 X10^3/uL (2.7-7.7); Neutrophil % 53.8 % (47-70); Platelet Count 221 K/mm3 (150-450); RBC Distribution Width CV 12.5 % (11.6-14.6); RBC Distribution Width SD 40.7 fl (35.1-43.9); Red Blood Count 5.04 M/mm3 (4.6-6.2); White Blood Count 5.7 K/mm3 (4.4-11.0)
[2020-01-24 12:07] LABS: Anion Gap 5 (5-15); BUN 15 mg/dL (7-18); BUN/Creat Ratio 11.7 RATIO (10-20); Calcium,Total 9.2 mg/dL (8.5-10.1); Chloride 105 mmol/L (98-107); Creatinine, Serum 1.28 mg/dL (0.70-1.30); EST Glomerular Filtration Rate 57 mL/min (>60); Est Glom Filt Rate - Afr Amer 69 mL/min (>60); Glucose 147 mg/dL (74-106); Potassium 3.8 mmol/L (3.5-5.1); Sodium Level 139 mmol/L (136-145)
--- NOTE | 2020-01-24 12:25 | ED.DCSUM_ITS ---
- ER Visit Summary Date of Service: 01/24/20 Chief Complaint: Facial droop History of Present Illness: The patient is a [address] Clayton Márquez. He woke up during the night with pain just posterior to his left earlobe. Describes it as a sharp pain instead of 10 at worst and 5-10 currently. States he did not think much of of it and went back to sleep. 8:00 this morning he noticed that he had a left facial droop. He was unable to close his left eye. He also complains of slurred speech. He denies any change in his vision. No vertigo. No numbness or weakness in his arms or legs. Review of systems: General: No fever, chills, cold sweats. Cardiovascular: No chest pain, palpitations. Respiratory: No cough, shortness of breath, dyspnea on exertion. Gastrointestinal: No abdominal pain, nausea, vomiting, diarrhea, melena, or hematochezia. Genitourinary: No dysuria, frequency, hematuria. Skin: No rash. Neuro: No headache, numbness, weakness. Physical Examination: Vitals: Stable. Afebrile. General: Well-nourished and well-developed. Head: Normocephalic atraumatic. HEENT: Left external auditory canal is normal. Left TM is normal. Neck: Supple, no lymphadenopathy. No JVD. Nontender. Cardiovascular: Regular rate and rhythm. No murmurs. Respiratory: No respiratory distress. Clear to auscultation bilaterally. Abdominal: Soft, nontender, nondistended, normal bowel sounds. No guarding, rebound, or peritoneal signs. Back: Nontender. Extremities: Nontender, no edema. Skin: Normal color, no rash. Neurologic: Alert and oriented ?3. Profound facial droop on the left with involvement of his forehead. 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 Normal strength and sensation. Psych: Normal affect. Test Results: CBC is normal. Chem-7 shows a glucose 147. Clinical Impression(s) from Imaging Studies Brain CT 01/24/20 11:48 IMPRESSION: Chronic involutional changes of the brain. Old lacunar infarct in the left basal ganglia. Electronically Signed: Chris Wells, at 12:18 EDT , Service support , Emergency Department Course and Treatment: Patient exam is classic for Gutierrez's palsy. However, given his age and the pain I performed imaging to rule out more ominous pathology. He was given acyclovir and prednisone. He is resting c omfortably. Treatment Plan: Patient will be discharged on prednisone and acyclovir. He is also prescribed Lacri-Lube and instructed to tape his eye closed at night. Instructed to follow-up his primary care physician 1 week for another exam. Return to the emergency department for any worsening symptoms. Disposition: To home in improved and stable condition. 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 This note was generated with [employer] dictation software. It may contain incorrect words, spelling, and punctuation that were not noted in review of the chart prior to signing ED Disposition - Plan for ED Patient: Disposition: Home or Assisted Living Instructions: ED [place] [facility] Prescriptions: Acyclovir 1 tab PO 5X/DAY #50 tab Prescription Printed Petrolatum,White [Lacrilube] 1 applic EACH EYE TID #1 tube Prescription Printed predniSONE tablet 60 mg PO DAILY #15 tab Prescription Printed Omeprazole [Prilosec] 20 mg PO DAILY #30 cap Prescription Printed Referrals: Clayton Márquez MD [Primary Care Provider] - 1 Week
[2020-01-24 12:47] VITALS: BP 169/76; PULSE 61; RESP 17; O2SAT 98
[2020-01-24] MEDS: predniSONE 20 MG Tablet 60 MG PO (12:52)
[2020-01-24] MEDS: Acyclovir 200 MG Capsule 400 MG PO (13:07)
== END 2020-01-24 13:10 | disposition home or self-care (01) ==
LOC: ED 12:37
PROVIDERS: Emergency Provider Emergency Medicine; PCP Family Medicine
DX: G51.0 Bell's palsy (principal); Z86.73 Personal history of transient ischemic attack (TIA), and cerebral infarction without residual deficits
CPT/HCPCS: 70450; 80048; 85025; 99284; A4216

== ENCOUNTER 2023-02-09 13:32 | Emergency (ER) | payer OTHER, SELFPAY ==
[2023-02-09 13:33] VITALS: BP 163/77; PULSE 69; RESP 18; TEMP 36.7; O2SAT 97; BMI 23.3
--- NOTE | 2023-02-09 14:13 | CT_ITS ---
STUDY: CT BRAIN WITHOUT CONTRAST REASON FOR EXAM: Male, 87 years old. 2 with a history of dizziness. RADIATION DOSAGE (If Supplied By Facility): CTDIvol = ( 44.99 ) mGy, DLP = ( 745.49 ) mGycm TECHNIQUE: Transaxial CT imaging of the brain was performed without administration of intravenous contrast material. Individualized dose optimization techniques were used for this CT. COMPARISON: Comparison is made with prior study dated January 24, 2020. FINDINGS: Normal soft tissue structures. Normal calvarium. There is mild cerebral atrophy with widening of the extra-axial spaces and ventricular dilatation. There are areas of decreased attenuation within the white matter tracts of the supratentorial brain, consistent with microvascular disease changes. Stable small old lacunar infarct in the insular cortex of the left temporal lobe. Normal brainstem. Normal cerebellum. There is no intracranial hemorrhage. There are no findings of an acute ischemic infarction. Normal visualized paranasal sinuses. CT/Brain/Head without Contrast IMPRESSION: Chronic involutional changes of the brain. Stable old small lacunar infarct in the insular cortex of the left temporal lobe. Electronically Signed: Chris Wells MD at 15:01 EDT ,
--- NOTE | 2023-02-09 14:13 | EKG12_ITS ---
Test Reason : DIZZINESS Blood Pressure : / mmHG Vent. Rate : 064 BPM Atrial Rate : 064 BPM P-R Int : 154 ms QRS Dur : 076 ms QT Int : 408 ms P-R-T Axes : 036 010 012 degrees QTc Int : 420 ms Normal sinus rhythm Cannot rule out Inferior infarct , age undetermined Abnormal ECG Confirmed by DOMINIC MENDOZA, LEIA ([id number]), editor news ANDRZEJ SALAS ([id number]) on 02/13/2023 1:06:29 PM Referred By: PL/JONATHAN Confirmed By:KHALIF ALFARO MD
--- NOTE | 2023-02-09 14:14 | EX.ED.DYSGE1 ---
HPI History of Present Illness Chief Complaint: Dizziness Informant: patient Narrative Narrative: Patient presents more than 24 hours out from the onset of dizziness. He states initially it felt like vertigo that he had in the past. He initially states that the main difference is that this time it did not respond to the exercises he was doing, he describes maneuvers of the Aron maneuver. He states he woke up with it yesterday morning, last normal 2 nights ago. He denies any tinnitus, earache, headache, vision changes, paresthesias or weakness in an arm or leg, speech issues or problems understanding others, recent head injury, fall or other injury, or any other illness including URIs in the past several weeks. He takes no daily medications. He states whenever he sits up from lying down that seems to make it worse, whenever he walks he is off balance and having disequilibrium, and he feels a little lightheaded but no presyncopal symptoms. [facility] Medical History (Updated 02/09/23 @ 21:[address] Ryne King MD) Positional vertigo Home Medications Petrolatum,White [Lacrilube] 1 applic TID #1 tube 01/24/20 [Rx Last Taken Unknown] acyclovir 400 mg tablet 1 tab PO 5X/DAY #50 tabs 01/24/20 [Rx Last Taken Unknown] omeprazole 20 mg capsule,delayed release 20 mg PO DAILY #30 caps 01/24/20 [Rx Last Taken Unknown] prednisone 20 mg tablet 60 mg (3 x 20 mg) PO DAILY #15 tabs 01/24/20 [Rx Last Taken Unknown] meclizine 25 mg tablet 25 mg PO Q8H PRN PRN Dizziness #20 tabs 02/09/23 [Rx Last Taken Unknown] Allergy/AdvReac Type Severity Reaction Status Date / Time No Known Allergies Allergy Verified 01/24/20 11:29 Social History Smoking Status: Never smoker ROS ROS ED Constitutional Constitutional ED: Denies chills or fever(s) Eyes Eyes: Denies change in vision or diplopia ENT ENT ED: Denies rhinorrhea or sore throat Cardiovascular Cardiovascular: Denies chest pain or palpitations Respiratory/Chest Respiratory/Chest: Denies cough or dyspnea Gastrointestinal Gastrointestinal: Denies abdominal pain, diarrhea, nausea or vomiting Genitourinary Genitourinary ED: Denies dysuria or hematuria Musculoskeletal Musculoskeletal: Denies back pain or neck pain Integumentary Denies abscess or rash Neurologic Neurologic: Reports as per HPI, disequilibrium and dizziness; Denies headache(s), paresthesias or weakness Psychiatric Psychiatric: Denies anxiety or suicidal thoughts EXAM Physical Exam Const Vital Signs: 02/09/23 13:33 02/09/23 13:38 02/09/23 17:04 Temperature 98.1 F Temperature Source Temporal Pulse Rate 69 66 Respiratory Rate 18 18 Respiratory Pattern Normal Blood Pressure 163/77 H 140/71 H Blood Pressure Mean 105 94 Pulse Ox 97 95 Oxygen Delivery Method Room Air Room Air 02/09/23 20:09 Temperature Temperature Source Pulse Rate 76 Respiratory Rate 18 Respiratory Pattern Blood Pressure 129/77 H Blood Pressure Mean 94 Pulse Ox 96 Oxygen Delivery Method Room Air Positive well nourished and well developed General Appearance ED: well developed and NAD HEENT Reports TM's clear and moist mucous membranes normocephalic and atraumatic Tympanic Membrane ED: Yes TM's clear Eyes PERRL and EOMs intact bilaterally Eyes Narrative: Left lazy eye, 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 family Neck full ROM and supple Neck Narrative: No carotid bruits bilaterally Resp normal respiratory effort and clear to auscultation bilaterally Cardio regular rate, regular rhythm and no murmurs GI non-tender and non-distended Auscultation: normoactive bowel sounds Palpation: soft Back/Spine no CVA tenderness General Back: other FROM Extremity normal to inspection General Extremety ED: Negative for edema, pulses abnormal or tenderness General Extremity: Negative for edema or pulses abnormal Neuro oriented x3, CN's II-XII intact bilaterally and no sensory deficits noted Neuro Narrative: See NIHSS attached, 0. Normal curbnz-kb-lomm and rqkp-jf-[id number] bilaterally. No vertical, rotatory, or pathologic horizontal nystagmus. Patient having mild symptoms, performed jolt test, normal response with no catch-up saccades. Sensorium / Orientation: awake and alert Motor Exam: strength 5/5 throughout Skin no rashes or lesions noted and no wounds NIHSS NIHSS Initial: 1a Level of Consciousness: 0 1b LOC Questions (Score 2 if aphasic/stupor): 0 1c LOC Commands (Only score 1st attempt): 0 2 Best Gaze (If aphasic, use reflexive mvmts.): 0 3 Visual: 0 4 Facial Palsy: 0 5 Motor Arm Right (UN = amputation/fusion): 0 5 Motor Arm Left: 0 6 Motor Leg Right: 0 6 Motor Leg Left: 0 7 Limb ataxia (Only + if out of proportion): 0 8 Sensory (Aphasia/stupor=0 or 1, coma=2): 0 9 Best Language: 0 10 Dysarthria (mute, coma=2, intubated=UN): 0 11 Extinction and Inattention (only scored if +): 0 Total Score: 0 MDM MDM MDM Narrative Medical decision making narrative: The patient's normal response to jolt test and his elevated pressure are both concerning for possible central etiology of vertigo/disequilibrium. However, his neurologic exam is normal, and he has no other symptoms that lend additional concern for central etiology such as vision or speech or peripheral neurologic symptoms, and he really was barely symptomatic when performing the jolt test, which does not necessarily make it very specific. 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 As I discussed with him and family, this does put him at risk for others, and this does not necessarily rule out the possibility of a posterior central process given that his symptoms have been for less than 48 hours. He is no longer in the window for thrombectomy, so given his age and creatinine of 1.27, CT angiography is not indicated if he can have MRI and MRA and avoid contrast. I discussed possibilities of admission, discharged with him, we were able to get an MRI and it was negative, he states he feels he can safely go home as he is not severely symptomatic it is just uncomfortable. Therefore discussing with the unit aide tech, they were able to fit him in for a stat MRI and MRA of the brain, these were performed, I reviewed the images and the report which I agree with, essentially negative for any acute. Patient is doing well his blood pressure is 129/77 on reevaluation, he wants to go home and I am okay with that. He understands that MRI is not 100% sensitive for posterior circulation ischemic infarct, we discussed reasons to return, I recommend following up regardless he is comfortable with that plan prescribed meclizine to use as needed. Lab Data Attestation: I reviewed the patient's lab results. Labs: Laboratory Results - last 24 hr 02/09/23 13:50 WBC 8.1 RBC 4.99 Hgb 15.5 Hct 44.5 MCV 89.2 MCH 31.1 MCHC 34.8 RDW Std Deviation 42.2 RDW Coeff of Annie 13.0 Plt Count 197 MPV 10.5 Immature Gran % (Auto) 0.200 Neut % (Auto) 54.1 Lymph % (Auto) 36.4 Knott % (Auto) 7.6 Eos % (Auto) 1.5 Baso % (Auto) 0.2 Absolute Neuts (auto) 4.4 Absolute Lymphs (auto) 2.94 Nucleated RBC % 0 Sodium 140 Potassium 3.8 Chloride 103 Carbon Dioxide 31.0 Anion Gap 6 BUN 14 Creatinine 1.27 Estim Creat Clear Calc 36.99 Est GFR (MDRD) Af Amer 69 Est GFR (MDRD) Non-Af 57 L BUN/Creatinine Ratio 11.0 Glucose 119 H Calcium 9.2 Radiography Diagnostic Testing: Clinical Impression(s) from Imaging Studies Brain CT 02/09/23 14:13 IMPRESSION: Chronic involutional changes of the brain. Stable old small lacunar infarct in the insular cortex of the left temporal lobe. Electronically Signed: Chris Wells MD at 15:01 EDT , Brain MRI 02/09/23 17:13 IMPRESSION: Minimal periventricular white matter ischemic change without evidence for acute infarct. Electronically Signed: Theodore Handy MD at 20:38 EDT , Head MRA 02/09/23 17:13 IMPRESSION: Normal MRA of the head Electronically Signed: Theodore Handy MD at 20:35 EDT , Rhythm Strip Rhythm Strip: Sinus Rhythm Rate: 65 Ectopy: None EKG Initial EKG: Attestation: I personally reviewed and interpreted this EKG as follows: Interpretation: Sinus Rhythm and No Acute Injury Pattern Comments: Normal EKG Discharge Plan Triage Chief Complaint: Dizziness ED Provider: Ryne King Dx/Rx/DC Orders Clinical Impression: Vertigo Instructions: ED Vertigo, Unspecified Prescriptions: New meclizine [meclizine] 25 mg tablet 25 mg PO Q8H PRN PRN (Reason: Dizziness) Qty: 20 0RF No Action prednisone 20 MG tablet 60 mg PO DAILY Qty: 15 0RF acyclovir 400 MG tablet 1 tab PO 5X/DAY Qty: 50 0RF omeprazole 20 MG capsule 20 mg PO DAILY Qty: 30 0RF Petrolatum,White [Lacrilube] 1 APPLIC Opth.Tube 1 applic Each Eye TID Qty: 1 0RF Primary Care Provider[facility] Referrals: Clayton Márquez MD [Non-Staff] - 3-5 Days (or your doctor at the [place]) Disposition Disposition: Home, Self Care Stroke Documentation Questions Stroke Team Activated: No (timing) Was Patient considered for Endovascular Intervention?: No-CTA not indicated (sx > 24hrs)
[2023-02-09 14:41] LABS: Absolute Lymphocyte Count 2.94 X10^3/uL (0.83-4.51); Absolute Neutrophil Count 4.4 X10^3/uL (2.0-7.7); Basophil# 0.02 X10^3/uL; Basophil% 0.2 % (0-1); Eosinophil# 0.12 X10^3/uL; Eosinophils% 1.5 % (0-5); Hematocrit 44.5 % (40-54); Hemoglobin 15.5 g/dL (13.0-16.5); Lymphocyte # 2.94 X10^3/ul (0.83-4.51); Lymphocyte % 36.4 % (19-41); Mean Corp Hgb Conc 34.8 g/dL (32-36); Mean Corpuscular Hgb 31.1 pg (27.0-32.0); Mean Corpuscular Volume 89.2 fL (80-94); Mean Platelet Vol. 10.5 fl (6.2-12.0); Monocyte# 0.61 X10^3/uL; Monocyte% 7.6 % (0-10); NRBC Flagged by Analyzer 0 % (0-5); Neutrophil # 4.36 X10^3/uL (2.7-7.7); Neutrophil % 54.1 % (47-70); Platelet Count 197 K/mm3 (150-450); RBC Distribution Width SD 42.2 fl (35.1-43.9); Red Blood Count 4.99 M/mm3 (4.6-6.2); White Blood Count 8.1 K/mm3 (4.4-11.0)
[2023-02-09 14:52] LABS: Anion Gap 6 (5-15); BUN 14 mg/dL (7-18); Calcium,Total 9.2 mg/dL (8.5-10.1); Chloride 103 mmol/L (98-107); Creatinine, Serum 1.27 mg/dL (0.70-1.30); EST Glomerular Filtration Rate 57 mL/min (>60); Est Glom Filt Rate - Afr Amer 69 mL/min (>60); Estimated Creatinine Clearance 36.99 ml/min; Glucose 119 mg/dL (74-106); Potassium 3.8 mmol/L (3.5-5.1); Sodium Level 140 mmol/L (136-145)
[2023-02-09 17:04] VITALS: BP 140/71; PULSE 66; RESP 18; O2SAT 95
--- NOTE | 2023-02-09 17:13 | MRI_ITS ---
STUDY: MRI BRAIN WITHOUT CONTRAST REASON FOR EXAM: Male, 87 years old. central vertigo since yesterday morning TECHNIQUE: Standardized multiplanar fat and water weighted pulse sequences were obtained. COMPARISON: CT of the brain February 09, 2023 MRI of the brain AugustAugust 15, 2017 FINDINGS: Normal size of the ventricles and extra-axial spaces for the patient''s age. Minimal periventricular white matter ischemic change without mass effect or restricted diffusion. Normal bilateral basal ganglia. Normal thalami. There is no extra-axial fluid accumulation. Normal flow voids within the major intracranial circulation suggesting patency by spin echo criteria. Normal sella turcica, pituitary gland, infundibular stalk, optic chiasm and hypothalamus. Normal tectal plate and pineal gland. Normal midbrain, long and medulla. Normal cerebellum. Normal basal cisterns. Normal bilateral temporal bones. Normal bilateral internal auditory canals. Postsurgical changes of the left orbit.. Minor mucosal thickening of the bilateral ethmoid air cells. Normal calvarium and skull base. Normal visualized soft tissue structures. Normal visualized upper cervical spine. MRI/Brain without Contrast IMPRESSION: Minimal periventricular white matter ischemic change without evidence for acute infarct. Electronically Signed: Theodore Handy MD at 20:38 EDT ,
--- NOTE | 2023-02-09 17:13 | MRI_ITS ---
STUDY: MRA OF THE HEAD WITHOUT CONTRAST REASON FOR EXAM: Male, 87 years old. central vertigo since yesterday morning TECHNIQUE: 3-D ddfj-wy-bozzxm (TOF) imaging was performed with MIPs. The study was performed unenhanced. COMPARISON: None. FINDINGS: Normal bilateral petrous carotid arteries. Normal right cavernous carotid artery with a normal supraclinoid bifurcation. Normal left cavernous carotid artery with a normal supraclinoid bifurcation. Normal right A1 segments of the anterior cerebral artery. Normal left A1 segments of the anterior cerebral artery. Anterior communicating artery not visualized consistent with normal variant.). Normal bilateral A2 segments of the anterior cerebral arteries. Normal right M1 and M2 segments of the middle cerebral arteries, with a normal M1 bifurcation. Normal left M1 and M2 segments of the middle cerebral arteries, with a normal M1 bifurcation. Posterior communicating arteries are not visualized consistent with normal variant Normal bilateral vertebral arteries. Normal basilar artery with a normal basilar bifurcation. The visualized bilateral superior cerebellar (SCA) arteries are normal. Normal bilateral P1, P2 and visualized P3 segments of the posterior cerebral arteries. There is no demonstrated aneurysm of the [place] There is no major vessel occlusion or hemodynamically significant stenosis. MRI/MRA Head ONLY without Contrast IMPRESSION: Normal MRA of the head Electronically Signed: Theodore Handy MD at 20:35 EDT ,
--- NOTE | 2023-02-09 17:50 | CM.ED ---
Social Work SW introduced self and role to patient. SW discussed advance directives and patient and spouse reports they both have HCPOA and living baker. SW requested they bring them in to be scanned into their record. Michelle Davis MSW, [employer]
[2023-02-09 20:09] VITALS: BP 129/77; PULSE 76; RESP 18; O2SAT 96
[2023-02-09] MEDS: Meclizine HCl 25 MG Tablet PO (21:31)
== END 2023-02-09 21:40 | disposition home or self-care (01) ==
PROVIDERS: Emergency Provider Emergency Medicine; Visit Provider Emergency Medicine
DX: R42 Dizziness and giddiness (principal)
CPT/HCPCS: 70450; 70544; 70551; 80048; 85025; 93005; 99284; A4216

== ENCOUNTER 2024-08-09 18:20 | Emergency (ER) | payer MEDICARE, SELFPAY ==
[2024-08-09 18:21] VITALS: BP 123/77; PULSE 116; RESP 18; TEMP 36.6; O2SAT 98; BMI 23.6
== END 2024-08-09 18:47 | disposition left against medical advice (07) ==
LOC: ED 18:54
DX: R11.2 Nausea with vomiting, unspecified (principal); R19.7 Diarrhea, unspecified